=== PATIENT | male | born 1975 | race Hispanic/Latino ===

== ENCOUNTER 2016-12-06 23:33 | Emergency (ER) | payer MEDICAID ==
[2016-12-06] MEDS ORDERED: MOTRIN PO ONE (23:52)
[2016-12-07 05:35] VITALS: BP 119/81
[2016-12-07] MEDS ORDERED: DUONEB 0.5 MG-3 MG/3 ML SOLN IH ONE (07:39)
[2016-12-07] MEDS ORDERED: DELTASONE PO ONE (07:39)
--- NOTE | 2016-12-07 08:03 | XRay Report ---
CHEST TWO VIEWS: 12/07/16 CLINICAL: Cough and fever. COMPARISON: None FINDINGS: Normal heart and pulmonary vasculature. The lungs are normally expanded and clear.The bones and soft tissues are unremarkable. IMPRESSION: Normal chest.
--- NOTE | 2016-12-07 08:43 | Emergency Department Report ---
HPI - General Chief Complaint: Upper Respiratory Infection Time Seen by Provider: 12/07/16 07:27 - HPI HPI: Patient here reports cough x 2 weeks. Reports getting worst over the past 3 days and now with fever. Denies SOB or CP.Took Tylenol without any releif. Reports sore throat and wallace 08/06. reports nasal congestion and runny nose. Pain to head located to sides of fore head and achy. Pain is intermittent. Sore throat with coughing and worst at night ED Past Medical Hx - Past Medical History Previous Medical History?: No - Surgical History Past Surgical History?: No - Family History Family history: no significant - Social History Smoking Status: Never Smoker Substance Use Type: None - Medications Home Medications: Home Medications Medication Instructions Recorded Confirmed Last Taken Type Gentamicin 0.3% Ophth Soln 2 drops OP Q4H 5 Days 04/13/15 Unknown Rx Gentamicin 0.3% Ophth Soln 1 drops OP Q8H #1 bottle 02/05/16 Unknown Rx ALBUTEROL Inhaler [ProAir HFA 2 puff IH QID PRN #1 inhalation 12/07/16 Unknown Rx Inhaler] Azithromycin [Zithromax Z-DANNY] 250 mg PO DAILY #6 tab 12/07/16 Unknown Rx Fluticasone [Flonase] 1 spray NS QDAY #01 bottle 12/07/16 Unknown Rx guaiFENesin/CODEINE [Robitussin AC] 5 ml PO TID PRN #75 ml 12/07/16 Unknown Rx predniSONE [Deltasone] 50 mg PO QDAY #5 tab 12/07/16 Unknown Rx ED Review of Systems ROS: Stated complaint: FEVER/COUGH/COLD SX Other details as noted in HPI Comment: All other systems reviewed and negative Constitutional: chills, fever ENT: throat pain, congestion. denies: ear pain Respiratory: cough. denies: shortness of breath, SOB with exertion, SOB at rest , stridor, wheezing Cardiovascular: denies: chest pain, palpitations, edema, syncope Gastrointestinal: denies: abdominal pain, nausea, vomiting, diarrhea Musculoskeletal: denies: back pain, arthralgia Skin: denies: rash Neurological: headache. denies: weakness, numbness, paresthesias, confusion, abnormal gait, vertigo Physical Exam - Physical Exam Vital Signs: Vital Signs 12/06/16 12/06/16 12/07/16 23:42 23:46 05:34 Temperature 101.4 F H 101.4 F H 98.9 F Pulse Rate 99 H 99 H 81 Pulse Rate [ Right Lower Lobe] Respiratory 20 20 20 Rate Respiratory Rate [Right Lower Lobe] Blood Pressure 142/78 119/81 Blood Pressure 142/78 [Right] O2 Sat by Pulse 99 99 100 Oximetry 12/07/16 08:01 Temperature Pulse Rate Pulse Rate [ 86 Right Lower Lobe] Respiratory Rate Respiratory 18 Rate [Right Lower Lobe] Blood Pressure Blood Pressure [Right] O2 Sat by Pulse Oximetry General: This is a 41 YO male well nourished, well developed in no acute distress Physical Exam: Head: Normocehalic, atraumatic. No contusion or abrasions CV:S1S2. RRR. No murmur Lungs: Wheezing to upper lung brian. Positive cough. NL work of breathing EXT: NO CCE. +2 pulses Neurological: GCS @15. Speech clear, no facial drooping. gait normal. no pronator drift. A&Ox3. no motor or sensory deficit. Nose: mucous membtane congested with erythema. clear drainage. Frontal sinuses TTP Eyes: BPERRL, EOMI. Normal Peripheral vision. Conjunctiva and sclera without injection. NL accommodation. EARS: B EAC without swelling or redness. Dorian TM congested without erythema Skin: no rash or lesions. CDI PSYCH: normal mood and behavior ED Course Vital Signs 12/06/16 12/06/16 12/07/16 23:42 23:46 05:34 Temperature 101.4 F H 101.4 F H 98.9 F Pulse Rate 99 H 99 H 81 Pulse Rate [ Right Lower Lobe] Respiratory 20 20 20 Rate Respiratory Rate [Right Lower Lobe] Blood Pressure 142/78 119/81 Blood Pressure 142/78 [Right] O2 Sat by Pulse 99 99 100 Oximetry 12/07/16 08:01 Temperature Pulse Rate Pulse Rate [ 86 Right Lower Lobe] Respiratory Rate Respiratory 18 Rate [Right Lower Lobe] Blood Pressure Blood Pressure [Right] O2 Sat by Pulse Oximetry - Reevaluation(s) Reevaluation #1: 12/07/16 08:59 Patient received Deltasone ,duoneb and motrin. No headache at present. Wheezing improved ED Medical Decision Making - Medical Decision Making ED Course: patient with sinusitis and bronchitis. I explained diagnosis and treatment plan with patient. I also informed him that cxr was normal. He is in agreement and voicd understanding. Patient given motinn 800 mg in ED for WALLACE and fever. Temp is normalized and headache is relieved. Received deltasone 60 mg po and duoneb x 1 treat ment in ED. Patient discharge home with prescription for flonase, prednisone,Guaifenessin/codeine, albuterol and zithromax. Critical care attestation.: If time is entered above; I have spent that time in minutes in the direct care of this critically ill patient, excluding procedure time. ED Disposition Clinical Impression: Fever in adult, Cough Bronchitis, acute Qualifiers: Bronchitis organism: unspecified organism Qualified Code(s): J20.9 - Acute bronchitis, unspecified Sinusitis Qualifiers: Sinusitis location: unspecified location Chronicity: unspecified Qualified Code (s): J32.9 - Chronic sinusitis, unspecified Disposition: DISCHARGED TO HOME OR SELFCARE Is pt being admited?: No Does the pt Need Aspirin: No Condition: Stable Instructions: Acute Bronchitis (ED), Sinusitis (ED), Acute Cough (ED), Fever in Adults (ED) Additional Instructions: Increase fluid intake rest Take medication as prescribed Please do not drive or operate heavy machinery while on cough syrup as this will cause drowsiness. Prescriptions: ALBUTEROL Inhaler [ProAir HFA Inhaler] 2 puff IH QID PRN #1 inhalation PRN Reason: Wheezing Azithromycin [Zithromax Z-DANNY] 250 mg PO DAILY #6 tab Fluticasone [Flonase] 1 spray NS QDAY #01 bottle guaiFENesin/CODEINE [Robitussin AC] 5 ml PO TID PRN #75 ml PRN Reason: Cough predniSONE [Deltasone] 50 mg PO QDAY #5 tab Referrals: PRIMARY CARE,MD [Primary Care Provider] - 3-5 Days Forms: Accompanied Note, Work/School Release Form(ED)
== END 2016-12-07 09:29 | disposition home or self-care (01) ==
LOC: ED 23:33
DX: J20.9 Acute bronchitis, unspecified (principal); J32.9 Chronic sinusitis, unspecified; R50.9 Fever, unspecified
CPT/HCPCS: 71020; 94640; 99283; J7512

== ENCOUNTER 2021-08-10 14:59 | Emergency (ER) | payer SELFPAY ==
[2021-08-10] MEDS ORDERED: SODIUM CHLORIDE 0.9% 1000 ML 1,000 ML IV ONE (16:14)
--- NOTE | 2021-08-10 16:14 | Event Note ---
ED Screening Note ED Screening Note: DIAGNOSED WITH DM II LAST WEEK AT [facility] SENT HOME ON INSULIN CO SEVERE EPIGASTRIC AND L FLANK PAIN PCP NONE RX INSULIN PSH NONE PMH DM II OCC ETOH- BEEN MONTHS ILL APPEARING IN TRIAGE BS 114 This initial assessment/diagnostic orders/clinical plan/treatment(s) is/are subject to change based on patients health status, clinical progression and re- assessment by fellow clinical providers in the ED. Further treatment and workup at subsequent clinical providers discretion. Patient/guardian urged not to elope from the ED as their condition may be serious if not clinically assessed and managed. Initial orders include: LABS
[2021-08-10] MEDS ORDERED: ONDANSETRON 4 MG/2 ML INJ IV ONE (16:39)
[2021-08-10] MEDS ORDERED: HYDROmorphone 1 MG/1 ML INJ IV ONE ×3 (16:39→21:39)
[2021-08-10] MEDS ORDERED: FAMOTIDINE 20 MG/2 ML INJ IV ONE (16:39)
--- NOTE | 2021-08-10 16:43 | Emergency Department Report ---
ED Abdominal Pain HPI - General Chief Complaint: Abdominal Pain Stated Complaint: SIDE/ADB PAIN Time Seen by Provider: 08/10/21 16:20 Source: patient, family Mode of arrival: Ambulatory Limitations: No Limitations - History of Present Illness Initial Comments: 45-year-old male with a recent diagnosis of diabetes 1 week ago started on insulin at that time after an ER visit presents to the hospital complaining abdominal pain since 10 AM. Pain is severe, constant, and worse with palpation. He does have some relief of constant direct pressure to the left flank.. Pain is described primarily on the left side. He denies nausea, vomiting, diarrhea, melena, hematochezia, fever, or dysuria. Patient has a family history of kidney stones but no personal history. Patient drinks EtOH on occasion but has not had alcohol in several months. No previous abdominal surgeries reported. - Related Data Previous Rx's Medication Instructions Recorded Last Taken Type Gentamicin 0.3% Ophth Soln 2 drops OP Q4H 5 Days bottle 04/13/15 Unknown Rx Albuterol Mdi (or & Nicu Only) 2 puff IH QID PRN #1 inhalation 12/07/16 Unknown Rx [ProAir HFA Inhaler] Azithromycin [Zithromax Z-DANNY] 250 mg PO DAILY #6 tab 12/07/16 Unknown Rx Fluticasone [Flonase] 1 spray NS QDAY #01 bottle 12/07/16 Unknown Rx Gentamicin 0.3% Ophth Soln 1 drops OP Q8H #1 bottle 12/07/16 Unknown Rx guaiFENesin/CODEINE [Robitussin AC] 5 ml PO TID PRN #75 ml 12/07/16 Unknown Rx predniSONE [Deltasone] 50 mg PO QDAY #5 tab 12/07/16 Unknown Rx Ibuprofen [Motrin] 800 mg PO Q8HR PRN #20 tablet 08/10/21 Unknown Rx Promethazine [Phenergan] 25 mg PO Q6HR PRN #20 tab 08/10/21 Unknown Rx levoFLOXacin [Levaquin] 750 mg PO QDAY #7 tablet 08/10/21 Unknown Rx oxyCODONE /ACETAMINOPHEN [Percocet 1 tab PO Q4HR PRN #14 tab 08/10/21 Unknown Rx 5/325] Allergies Allergy/AdvReac Type Severity Reaction Status Date / Time Penicillins Allergy Unknown Verified 04/13/15 01:33 ED Review of Systems ROS: Stated complaint: SIDE/ADB PAIN Other details as noted in HPI Comment: All other systems reviewed and negative ED Past Medical Hx - Past Medical History Previous Medical History?: Yes Hx Diabetes: Yes - Surgical History Past Surgical History?: No - Social History Smoking Status: Never Smoker Substance Use Type: None - Medications Home Medications: Home Medications Medication Instructions Recorded Confirmed Last Taken Type Gentamicin 0.3% Ophth Soln 2 drops OP Q4H 5 Days bottle 04/13/15 Unknown Rx Albuterol Mdi (or & Nicu Only) 2 puff IH QID PRN #1 inhalation 12/07/16 Unknown Rx [ProAir HFA Inhaler] Azithromycin [Zithromax Z-DANNY] 250 mg PO DAILY #6 tab 12/07/16 Unknown Rx Fluticasone [Flonase] 1 spray NS QDAY #01 bottle 12/07/16 Unknown Rx Gentamicin 0.3% Ophth Soln 1 drops OP Q8H #1 bottle 12/07/16 Unknown Rx guaiFENesin/CODEINE [Robitussin AC] 5 ml PO TID PRN #75 ml 12/07/16 Unknown Rx predniSONE [Deltasone] 50 mg PO QDAY #5 tab 12/07/16 Unknown Rx Ibuprofen [Motrin] 800 mg PO Q8HR PRN #20 tablet 08/10/21 Unknown Rx Promethazine [Phenergan] 25 mg PO Q6HR PRN #20 tab 08/10/21 Unknown Rx levoFLOXacin [Levaquin] 750 mg PO QDAY #7 tablet 08/10/21 Unknown Rx oxyCODONE /ACETAMINOPHEN [Percocet 1 tab PO Q4HR PRN #14 tab 08/10/21 Unknown Rx 5/325] ED Physical Exam - General Limitations: No Limitations - Other Other exam information: General: Moderate distress secondary to pain Head: Atraumatic Eyes: normal appearance ENT: Moist mucous membranes Neck: Normal appearance, no midline tenderness Chest: Clear to auscultation bilaterally CV: Regular rate and rhythm Abdomen: Soft, normal bowel sounds, generalized tenderness greatest in the epigastric and left upper abdomen Back: Normal inspection Extremity: Normal inspection, full range of motion Neuro: Alert O x 3, no facial asymmetry, speech clear, no gross motor sensory deficit Psych: Appropriate behavior Skin: No rash ED Course Vital Signs 08/10/21 08/10/21 08/10/21 16:03 17:02 17:05 Temperature 98.2 F Pulse Rate 95 H Respiratory 16 Rate Blood Pressure Blood Pressure 99/70 [Left] O2 Sat by Pulse 97 93 95 Oximetry 08/10/21 08/10/21 08/10/21 17:07 17:11 17:15 Temperature Pulse Rate Respiratory Rate Blood Pressure Blood Pressure 126/77 [Left] O2 Sat by Pulse 96 97 Oximetry 08/10/21 08/10/21 08/10/21 17:21 17:25 17:31 Temperature Pulse Rate Respiratory Rate Blood Pressure 115/75 115/75 115/75 Blood Pressure [Left] O2 Sat by Pulse 97 97 97 Oximetry 08/10/21 08/10/21 08/10/21 17:35 18:03 18:05 Temperature Pulse Rate Respiratory Rate Blood Pressure 115/75 Blood Pressure [Left] O2 Sat by Pulse 97 99 98 Oximetry 08/10/21 08/10/21 08/10/21 18:11 18:15 18:21 Temperature Pulse Rate Respiratory Rate Blood Pressure Blood Pressure [Left] O2 Sat by Pulse 97 97 97 Oximetry 08/10/21 08/10/21 08/10/21 18:25 18:31 18:35 Temperature Pulse Rate Respiratory Rate Blood Pressure Blood Pressure [Left] O2 Sat by Pulse 97 98 98 Oximetry 08/10/21 08/10/21 18:41 21:39 Temperature 98.8 F Pulse Rate 72 Respiratory 14 Rate Blood Pressure Blood Pressure 103/74 [Left] O2 Sat by Pulse 97 98 Oximetry ED Medical Decision Making - Lab Data Result diagrams: 08/10/21 16:27 08/10/21 16:27 Lab Results 08/10/21 08/10/21 08/10/21 Range/Units 16:06 16:27 16:27 WBC 7.1 (4.5-11.0) K/mm3 RBC 4.46 (3.65-5.03) M/mm3 Hgb 12.1 (11.8-15.2) gm/dl Hct 35.4 L (35.5-45.6) % MCV 79 L (84-94) fl MCH 27 L (28-32) pg MCHC 34 (32-34) % RDW 15.9 H (13.2-15.2) % Plt Count 279 (140-440) K/mm3 Lymph % (Auto) 25.0 (13.4-35.0) % [place] % (Auto) 8.0 H (0.0-7.3) % Eos % (Auto) 0.1 (0.0-4.3) % Baso % (Auto) 0.3 (0.0-1.8) % Lymph # (Auto) 1.8 (1.2-5.4) K/mm3 [place] # (Auto) 0.6 (0.0-0.8) K/mm3 Eos # (Auto) 0.0 (0.0-0.4) K/mm3 Baso # (Auto) 0.0 (0.0-0.1) K/mm3 Seg Neutrophils % 66.6 (40.0-70.0) % Seg Neutrophils # 4.7 (1.8-7.7) K/mm3 Sodium 134 L (137-145) mmol/L Potassium 4.1 (3.6-5.0) mmol/L Chloride 96.9 L (98-107) mmol/L Carbon Dioxide 23 (22-30) mmol/L Anion Gap 18 mmol/L BUN 14 (9-20) mg/dL Creatinine 0.9 (0.8-1.3) mg/dL Estimated GFR > 60 ml/min BUN/Creatinine Ratio 16 % Glucose 114 H (75-100) mg/dL POC Glucose 124 H (70-105) mg/dL Calcium 8.9 (8.4-10.2) mg/dL Total Bilirubin 0.30 (0.1-1.2) mg/dL Direct Bilirubin < 0.2 (0-0.2) mg/dL Indirect Bilirubin 0.1 mg/dL AST 17 (5-40) units/L ALT 15 (7-56) units/L Alkaline Phosphatase 118 (35-129) units/L Total Protein 7.8 (6.3-8.2) g/dL Albumin 3.5 L (3.9-5) g/dL Albumin/Globulin Ratio 0.8 % Lipase 14 (13-60) units/L Urine Color (Yellow) Urine Turbidity (Clear) Urine pH (5.0-7.0) Ur Specific [place] (1.003-1.030) Urine Protein (Negative) mg/dL Urine Glucose (UA) (Negative) mg/dL Urine Ketones (Negative) mg/dL Urine Blood (Negative) Urine Nitrite (Negative) Ur Reducing Substances Urine Bilirubin (Negative) Urine Ictotest Urine Urobilinogen (<2.0) mg/dL Ur Leukocyte Esterase (Negative) Urine WBC (Auto) (0.0-6.0) /HPF Urine RBC (Auto) (0.0-6.0) /HPF Urine Bacteria (Auto) (Negative) /HPF Urine WBC Clumps /HPF 08/10/21 Range/Units 18:00 WBC (4.5-11.0) K/mm3 RBC (3.65-5.03) M/mm3 Hgb (11.8-15.2) gm/dl Hct (35.5-45.6) % MCV (84-94) fl MCH (28-32) pg MCHC (32-34) % RDW (13.2-15.2) % Plt Count (140-440) K/mm3 Lymph % (Auto) (13.4-35.0) % [place] % (Auto) (0.0-7.3) % Eos % (Auto) (0.0-4.3) % Baso % (Auto) (0.0-1.8) % Lymph # (Auto) (1.2-5.4) K/mm3 [place] # (Auto) (0.0-0.8) K/mm3 Eos # (Auto) (0.0-0.4) K/mm3 Baso # (Auto) (0.0-0.1) K/mm3 Seg Neutrophils % (40.0-70.0) % Seg Neutrophils # (1.8-7.7) K/mm3 Sodium (137-145) mmol/L Potassium (3.6-5.0) mmol/L Chloride (98-107) mmol/L Carbon Dioxide (22-30) mmol/L Anion Gap mmol/L BUN (9-20) mg/dL Creatinine (0.8-1.3) mg/dL Estimated GFR ml/min BUN/Creatinine Ratio % Glucose (75-100) mg/dL POC Glucose (70-105) mg/dL Calcium (8.4-10.2) mg/dL Total Bilirubin (0.1-1.2) mg/dL Direct Bilirubin (0-0.2) mg/dL Indirect Bilirubin mg/dL AST (5-40) units/L ALT (7-56) units/L Alkaline Phosphatase (35-129) units/L Total Protein (6.3-8.2) g/dL Albumin (3.9-5) g/dL Albumin/Globulin Ratio % Lipase (13-60) units/L Urine Color Straw (Yellow) Urine Turbidity Turbid (Clear) Urine pH 6.0 (5.0-7.0) Ur Specific [place] 1.005 (1.003-1.030) Urine Protein 100 mg/dl (Negative) mg/dL Urine Glucose (UA) Negative (Negative) mg/dL Urine Ketones Negative (Negative) mg/dL Urine Blood Moderate A (Negative) Urine Nitrite Negative (Negative) Ur Reducing Substances Not Reportable Urine Bilirubin Negative (Negative) Urine Ictotest Not Reportable Urine Urobilinogen < 2.0 (<2.0) mg/dL Ur Leukocyte Esterase Large (Negative) Urine WBC (Auto) > 182.0 H (0.0-6.0) /HPF Urine RBC (Auto) 162.0 (0.0-6.0) /HPF Urine Bacteria (Auto) 4+ (Negative) /HPF Urine WBC Clumps 3+ /HPF - Radiology Data Radiology results: report reviewed cc: BETSY KENNY MD CT ABDOMEN AND PELVIS WITH CONTRAST HISTORY: diffuse abd greatest left side 100 ML OMNI 300 . COMPARISON: None. TECHNIQUE: CT images of the abdomen and pelvis were obtained following administration of intravenous contrast. All CT scans at this location are performed using CT dose reduction for ALARA by means of automated exposure control. CONTRAST: 100 ml of intravenous contrast administered. FINDINGS: Lungs/bones: There are patchy peripheral groundglass and nodular opacities in the lower lungs more dense opacities in the left lower lung Abdomen/pelvis: The liver, spleen, adrenal glands, pancreas, gallbladder and upper GI tract appear normal. There is marked heterogeneity within the left kidney with some striations. This is not as well-seen on the right kidney however there is a right renal cyst. Constipation is noted. No free air in the abdomen or pelvis. Urinary bladder appears normal. No acute bone findings are seen. IMPRESSION: 1. Abnormal appearance of left kidney concerning for polynephritis with striated appearance there is low density. This is not as well-seen on the right kidney however right renal cyst is noted. 2. Diffuse opacities in bilateral lower lungs with peripheral areas of nodularity and groundglass densities. Findings could represent Covid pneumonia. Clinical correlation and follow-up. Signer Name: Gelacio Hsieh MD Signed: 08/10/2021 6:13 PM CHEST 2 VIEWS INDICATION / CLINICAL INFORMATION: Abnormal lungs on abdominal CT. FINDINGS: SUPPORT DEVICES: None. HEART / MEDIASTINUM: No significant abnormality. LUNGS / PLEURA: Faint airspace pneumonia within the left lower lobe. The right lung appears clear. - Medical Decision Making 45-year male with left flank pain. CT findings suggestive pyelonephritis which corresponds to UA results. Patient lacks signs of sepsis occluding leukocytosis, fever, tachycardia, or MAP less than 65. Patient treated with IV fluids, pain medication, and received 1 dose of IV antibiotics prior to discharge. Patient discharged with antibiotics and pain medication. Tolerating p.o. without vomiting reported. Urine culture ordered in case bounce back in treatment failure. X-ray also shows possible early pneumonia which should be treated by the prescribed antibiotic. pain controlled at time of discharge. Critical Care Time: No Critical care attestation.: If time is entered above; I have spent that time in minutes in the direct care of this critically ill patient, excluding procedure time. ED Disposition Clinical Impression: Pyelonephritis of left kidney, Left lower lobe pneumonia Disposition: 01 HOME / SELF CARE / HOMELESS Is pt being admited?: No Does the pt Need Aspirin: No Condition: Stable Instructions: Bacterial Pneumonia (ED), Community-Acquired Pneumonia, Adult, Pyelonephritis, Adult, [id number] Additional Instructions: Take the medication as prescribed. Follow-up with your doctor or doctor/clinic provided. Return if symptoms worsen as indicated by your discharge instructions. Prescriptions: levoFLOXacin [Levaquin] 750 mg PO QDAY #7 tablet Ibuprofen [Motrin] 800 mg PO Q8HR PRN #20 tablet PRN Reason: Pain , Severe (7-10) oxyCODONE /ACETAMINOPHEN [Percocet 5/325] 1 tab PO Q4HR PRN #14 tab PRN Reason: Pain , Severe (7-10) Promethazine [Phenergan] 25 mg PO Q6HR PRN #20 tab PRN Reason: Nausea Referrals: PRIMARY CARE, [Primary Care Provider] - 3-5 Days EILEEN ROMERO MD [Staff Physician] - 3-5 Days Time of Disposition: 22:54
[2021-08-10 17:00] LABS: Basophils % (Auto) 0.3 % (0.0-1.8); Eosinophils % (Auto) 0.1 % (0.0-4.3); Hematocrit 35.4 % (35.5-45.6); Hemoglobin 12.1 gm/dl (11.8-15.2); Lymphocytes # (Auto) 1.8 K/mm3 (1.2-5.4); Mean Corpuscular HGB Conc 34 % (32-34); Mean Corpuscular Volume 79 fl (84-94); Monocytes # (Auto) 0.6 K/mm3 (0.0-0.8); Platelet Count 279 K/mm3 (140-440); Red Blood Count 4.46 M/mm3 (3.65-5.03); Red Cell Distribution Width 15.9 % (13.2-15.2)
[2021-08-10 17:14] LABS: Alanine Aminotransferase 15 units/L (7-56); Albumin 3.5 g/dL (3.9-5); BUN/Creatinine Ratio 16; Blood Urea Nitrogen 14 mg/dL (9-20); Calcium 8.9 mg/dL (8.4-10.2); Hemolysis Index 7
[2021-08-10 17:15] LABS: Bilirubin,Direct < 0.2 mg/dL (0-0.2)
--- NOTE | 2021-08-10 18:18 | Cat Scan Report ---
CT ABDOMEN AND PELVIS WITH CONTRAST HISTORY: diffuse abd greatest left side 100 ML OMNI 300 . COMPARISON: None. TECHNIQUE: CT images of the abdomen and pelvis were obtained following administration of intravenous contrast. All CT scans at this location are performed using CT dose reduction for ALARA by means of automated exposure control. CONTRAST: 100 ml of intravenous contrast administered. FINDINGS: Lungs/bones: There are patchy peripheral groundglass and nodular opacities in the lower lungs more d ense opacities in the left lower lung Abdomen/pelvis: The liver, spleen, adrenal glands, pancreas, gallbladder and upper GI tract appear n ormal. There is marked heterogeneity within the left kidney with some striations. This is not as well -seen on the right kidney however there is a right renal cyst. Constipation is noted. No free air in the abdomen or pelvis. Urinary bladder appears normal. No acute bone findings are seen. IMPRESSION: 1. Abnormal appearance of left kidney concerning for polynephritis with striated appearance there is low density. This is not as well-seen on the right kidney however right renal cyst is noted. 2. Diffuse opacities in bilateral lower lungs with peripheral areas of nodularity and groundglass den sities. Findings could represent Covid pneumonia. Clinical correlation and follow-up. Signer Name: Gelacio Hsieh MD Signed: 08/10/2021 6:13 PM Workstation Name: [id number]
[2021-08-10 18:24] LABS: Bacteria,Urine 4+ /HPF (Negative)
[2021-08-10 18:36] LABS: WBC,Urine > 182.0 /HPF (0.0-6.0)
[2021-08-10 18:48] LABS: Color,Urine Straw (Yellow)
[2021-08-10 18:49] LABS: Bilirubin,Urine Negative (Negative); Blood,Urine Moderate (Negative)
[2021-08-10 18:50] LABS: Urobilinogen,Urine < 2.0 mg/dL (<2.0)
[2021-08-10] MEDS ORDERED: KETOROLAC 30 MG/1 ML INJ IV ONE (19:10)
--- NOTE | 2021-08-10 19:49 | XRay Report ---
CHEST 2 VIEWS INDICATION / CLINICAL INFORMATION: Abnormal lungs on abdominal CT. FINDINGS: SUPPORT DEVICES: None. HEART / MEDIASTINUM: No significant abnormality. LUNGS / PLEURA: Faint airspace pneumonia within the left lower lobe. The right lung appears clear. Signer Name: Thad Martins MD Signed: 08/10/2021 7:45 PM Workstation Name: [id number]
[2021-08-10 23:27] VITALS: BP 112/80
== END 2021-08-10 23:27 | disposition home or self-care (01) ==
LOC: ED 14:59
DX: N12 Tubulo-interstitial nephritis, not specified as acute or chronic (principal); E11.8 Type 2 diabetes mellitus with unspecified complications; J18.9 Pneumonia, unspecified organism
CPT/HCPCS: 36415; 71046; 74177; 80048; 80076; 81001; 82962; 83690; 85025; 87076; 87086; 87186; 96361; 96365; 96366; 96375; 96376; 99284; J1170; J1885; J1956; J2405; J7030; Q9967